=== PATIENT | male | born 1985 | race American Indian/Alaskan Native ===

== ENCOUNTER 2021-01-01 21:00 | Emergency (ER) | payer SELFPAY ==
[2021-01-01] MEDS ORDERED: HYDROcodone/ACETAMINOPHEN 5-325 MG TAB PO STA (21:11)
--- NOTE | 2021-01-01 21:16 | Emergency Department Report ---
ED Lower Extremity HPI - General Chief Complaint: Extremity Injury, Lower Stated Complaint: POSS.BROKEN FOOT Time Seen by Provider: 01/01/21 21:10 Source: patient Mode of arrival: Ambulatory Limitations: No Limitations - History of Present Illness Complaint: foot injury -: Sudden, This evening Injury: Foot: Right Type of Injury: blunt (Crush injury was working when I got dropped a big piece of wood on his right foot resulting in severe pain and inability to weight-bear and ambulate since the onset) Severity: moderate, severe Improves With: immobilization Worsens With: weight bearing, movement, palpation Context: direct blow Associated Symptoms: swelling, able to partially bear weight - Related Data Previous Rx's Medication Instructions Recorded Last Taken Type Ketorolac [Toradol] 10 mg PO Q6H PRN #14 tablet 01/01/21 Unknown Rx Allergies Allergy/AdvReac Type Severity Reaction Status Date / Time No Known Allergies Allergy Unverified 01/01/21 21:07 ED Review of Systems ROS: Stated complaint: POSS.BROKEN FOOT Other details as noted in HPI Comment: All other systems reviewed and negative ED Past Medical Hx - Past Medical History Previous Medical History?: No - Surgical History Past Surgical History?: No - Medications Home Medications: Home Medications Medication Instructions Recorded Confirmed Last Taken Type Ketorolac [Toradol] 10 mg PO Q6H PRN #14 tablet 01/01/21 Unknown Rx ED Physical Exam - General Limitations: No Limitations General appearance: alert, in no apparent distress - Head Head exam: Present: atraumatic, normocephalic - Eye Eye exam: Present: normal appearance, PERRL Pupils: Present: normal accommodation - ENT ENT exam: Present: mucous membranes moist - Neck Neck exam: Present: normal inspection - Respiratory Respiratory exam: Present: normal lung sounds bilaterally. Absent: respiratory distress - Cardiovascular Cardiovascular Exam: Present: regular rate, normal rhythm. Absent: systolic murmur, diastolic murmur, rubs, gallop - GI/Abdominal GI/Abdominal exam: Present: soft, normal bowel sounds - Rectal Rectal exam: Present: deferred - Extremities Exam Extremities exam: Present: normal inspection, tenderness (To the dorsum of of the right foot with palpation. Mild swelling is noted. No broken skin or bleeding is present. Cap refills are brisk) - Back Exam Back exam: Present: normal inspection. Absent: CVA tenderness (R) - Neurological Exam Neurological exam: Present: alert, oriented X3, CN II-XII intact - Psychiatric Psychiatric exam: Present: normal affect, normal mood - Skin Skin exam: Present: warm, dry, intact, normal color. Absent: rash Critical care attestation.: If time is entered above; I have spent that time in minutes in the direct care of this critically ill patient, excluding procedure time. ED Disposition Clinical Impression: Foot contusion, Toe fracture Disposition: HOME / SELF CARE / HOMELESS Is pt being admited?: No Does the pt Need Aspirin: No Condition: Stable Instructions: Toe Fracture, [id number], How to Use Cold Therapy, Easy-to- Read, Cast or Splint Care, Adult, [id number], Contusion, [id number], Crush Injury of the Foot, [id number] Prescriptions: Ketorolac [Toradol] 10 mg PO Q6H PRN #14 tablet PRN Reason: Pain Referrals: [facility] [Provider Group] - 3-5 Days
--- NOTE | 2021-01-01 21:38 | XRay Report ---
Right foot 3 views INDICATION: Injury FINDINGS: MTP joints are intact. IP joints appear intact. Midfoot alignment appears normal. Questiona ble mild irregularity in the distal tuft of the third phalanx only seen on one view. IMPRESSION: 1. Questionable fractures of the distal tuft of the third phalanx only seen on one view. Clinical cor relation with patient's area of pain and exam. Signer Name: Frank Lin MD Signed: 01/01/2021 9:34 PM Workstation Name: [id number]
== END 2021-01-02 00:02 | disposition home or self-care (01) ==
LOC: ED 21:00
DX: S92.911A Unspecified fracture of right toe(s), initial encounter for closed fracture (principal); S90.31XA Contusion of right foot, initial encounter; W20.8XXA Other cause of strike by thrown, projected or falling object, initial encounter; Y93.89 Activity, other specified; Y92.89 Other specified places as the place of occurrence of the external cause; Y99.8 Other external cause status
CPT/HCPCS: 99283